=== PATIENT | female | born 1945 | race Hispanic/Latino ===

== ENCOUNTER 2017-06-10 20:56 | Emergency (ER) | payer MEDICARE ==
--- NOTE | 2017-06-10 22:38 | RAD ---
PORTABLE CHEST: 06/10/17 COMPARISON: 07/22/09 study. HISTORY: Cough. Heart size appears slightly enlarged. Aorta is tortuous. The lungs are clear of infiltrates. IMPRESSION: Borderline to minimal cardiomegaly. POS: [facility]
== END 2017-06-10 22:43 | disposition home or self-care (01) ==
LOC: ERS 20:56
DX: J20.9 Acute bronchitis, unspecified (principal); J45.909 Unspecified asthma, uncomplicated; I10 Essential (primary) hypertension; E66.9 Obesity, unspecified; E03.9 Hypothyroidism, unspecified
CPT/HCPCS: 71010

== ENCOUNTER 2017-06-13 10:35 | Emergency (ER) | payer MEDICARE ==
--- NOTE | 2017-06-13 11:07 | CT ---
CT BRAIN WITHOUT CONTRAST: History: Headache. FINDINGS: Comparison made with 05-06-15. No evidence of acute infarct, hemorrhage, midline shift or abnormal extraaxial fluid collections are seen. The ventricular size is normal and the basal cisterns patent. The bony calvarium is intact. T he visualized paranasal sinuses and mastoid air cells are clear. IMPRESSION: No CT evidence of acute intracranial process. POS: [facility]
[2017-06-13 11:21] LABS: #Basophils 0.1 thou/uL (0.0-0.2); #Lymphocytes 1.8 thou/uL (1.20-3.40); #Monocytes 0.8 thou/uL (0.11-0.59); #Neutrophils 8.2 thou/uL (1.40-6.50); %Basophils 0.6 % (0.0-1.0); %Eosinophils 0.2 % (0.0-10.0); %Lymphocytes 16.4 % (21.0-51.0); %Monocytes 7.5 % (0.0-10.0); Hematocrit 40.2 % (36.0-47.0); Mean Platelet Volume 5.9 fL (7.4-10.4); Red Blood Cell (RBC) Count 4.22 mill/uL (4.20-5.40); White Blood Cell (WBC) Count 10.8 thou/uL (4.8-10.8)
[2017-06-13 11:38] LABS: Anion Gap 13 mmol/L (10-20); BUN (Urea Nitrogen) 18 mg/dL (9.8-20.1); Calc. Creatinine Clearance 0 mL/min (70-130); Calcium 9.3 mg/dL (7.8-10.44); Carbon Dioxide 25 mmol/L (23-31); Chloride 105 mmol/L (98-107); Estimated GFR-MDRD Greater than 90
[2017-06-13] MEDS ORDERED: Acetaminophen 325 MG TAB ONE (12:40)
== END 2017-06-13 12:51 | disposition home or self-care (01) ==
LOC: ERS 10:35
DX: R51 Headache (principal); E66.9 Obesity, unspecified; E03.9 Hypothyroidism, unspecified; I10 Essential (primary) hypertension
CPT/HCPCS: 36415; 70450; 80048; 85025; 85652

== ENCOUNTER 2017-08-16 06:30 | Emergency (ER) | payer MEDICARE | END 2017-08-16 07:54 | disposition home or self-care (01) | LOC: ERS 06:30 | DX: I10 Essential (primary) hypertension (principal); E66.9 Obesity, unspecified; E03.9 Hypothyroidism, unspecified; Z79.899 Other long term (current) drug therapy; Z79.82 Long term (current) use of aspirin | CPT/HCPCS: 99283 ==

== ENCOUNTER 2018-09-03 16:46 | Outpatient (CLI) | payer MEDICARE ==
[2018-09-03 17:59] LABS: Hemoglobin 13.6 g/dL (12.0-16.0)
[2018-09-03 18:30] LABS: Anion Gap 13 mmol/L (10-20); BUN (Urea Nitrogen) 15 mg/dL (9.8-20.1); Calc. Creatinine Clearance 0 mL/min (70-130); Calcium 9.4 mg/dL (7.8-10.44); Carbon Dioxide 25 mmol/L (23-31); Chloride 105 mmol/L (98-107); Estimated GFR-MDRD 68; Glucose 127 mg/dL (83-110); Potassium 4.1 mmol/L (3.5-5.1); Sodium 139 mmol/L (136-145)
--- NOTE | 2018-09-07 20:25 | EKG ---
Test Reason : Blood Pressure : / mmHG Vent. Rate : 080 BPM Atrial Rate : 080 BPM P-R Int : 152 ms QRS Dur : 094 ms QT Int : 376 ms P-R-T Axes : 054 -66 040 degrees QTc Int : 433 ms Normal sinus rhythm Pulmonary disease pattern Incomplete right bundle branch block Left anterior fascicular block Abnormal ECG When compared with ECG of 06-MAY-2015 19:26, Incomplete right bundle branch block is now Present Confirmed by Jamal MARTINEZ ([id number]) on 09/07/2018 8:24:39 PM Referred By: JAMES Confirmed By:Jamal MARTINEZ
== END 2018-09-03 16:47 | disposition home or self-care (01) ==
LOC: LABBT 16:46
PROVIDERS: ATTEND Otolaryngology Plastic Surgery within the Head & Neck
DX: R22.2 Localized swelling, mass and lump, trunk (principal); K11.8 Other diseases of salivary glands
CPT/HCPCS: 80048; 85014; 85018; 93005; 93010

== ENCOUNTER 2018-09-05 10:02 | Day surgery (SDC) | payer MEDICARE ==
[2018-09-03 16:58] VITALS: BMI 38.2
[2018-09-05] MEDS ORDERED: Midazolam HCl 2 mg/2 ml Vial ONE (12:10)
[2018-09-05] MEDS ORDERED: Fentanyl 100 MCG/2 ML VIAL ONE ×2 (12:22→13:50)
[2018-09-05] MEDS ORDERED: Lidocaine 1% w/Epinephrine 1:100K 30 ML VIAL ONE (12:25)
[2018-09-05] MEDS ORDERED: Albuterol Sulfate HFA (OR ONLY) ONE (12:50)
[2018-09-05] MEDS ORDERED: HYDROcodone/Acetaminophen 5/325 mg Tablet ONE (15:11)
[2018-09-05] MEDS ORDERED: PHENYLEPHRINE-NS 100 MCG/ML 10 ML SYRINGE ONE (16:20)
[2018-09-05] MEDS ORDERED: Ondansetron PF 4 MG/2 ML Vial ONE (16:20)
[2018-09-05] MEDS ORDERED: Dexamethasone 20 MG/5 ML VIAL ONE (16:20)
[2018-09-05] MEDS ORDERED: PROPOFOL 200 MG/20 ML VIAL ONE (16:20)
[2018-09-05] MEDS ORDERED: Lidocaine 1% PF 5 ML VIAL ONE (16:20)
[2018-09-05] MEDS ORDERED: ePHEDrine/0.9% NaCl/PF SYRINGE 50 mg/10 ml ONE (16:20)
[2018-09-05] MEDS ORDERED: Succinylcholine Chloride 20 MG/ML 10 ml SYRINGE FS ONE (16:20)
--- NOTE | 2018-09-05 21:27 | OP ---
DATE OF PROCEDURE: 09/05/2018 PREOPERATIVE DIAGNOSIS: Left parotid mass. POSTOPERATIVE DIAGNOSIS: Left parotid mass. PROCEDURE: Left superficial parotidectomy with facial nerve monitor. ESTIMATED BLOOD LOSS: 10 mL. COMPLICATIONS: None. ANESTHESIA: GETA. PROCEDURE IN DETAIL: The patient was taken to the operative room and placed supine on the table. General endotracheal anesthesia was obtained by the anesthesia staff. Tube was secured in the right lower lip. The facial nerve monitor was inserted into the orbicularis javi and orbicularis oculi muscles. It was turned on and remained on throughout the procedure. Following this, the patient was prepped and draped in standard surgical fashion. Modified Eric incision was outlined. The portion of the inferior incision just anterior to the earlobe extending around the earlobe with 1 cm margin down to the left neck was used to approach this posteriorly located parotid tail mass. Following this, skin and subcutaneous tissue were elevated. A flap over the posterior aspect of the parotid gland was obtained. The mass was adjacent to the posterior edge of the left superficial lobe of the parotid. This mass along with a cuff of normal tissue was removed. A marginal mandibular branch of the facial nerve was identified and was kept at the facial nerve. Following this, the wound was irrigated. The wound was closed using 3-0 and 4-0 Monocryl stitches and Dermabond for the skin. The patient tolerated the procedure well. The facial nerve monitor was turned off. Job ID: [id number]
== END 2018-09-05 16:13 | disposition home or self-care (01) ==
LOC: SDC 10:02
PROVIDERS: ATTEND Otolaryngology Plastic Surgery within the Head & Neck
PROC: 0CBC0ZZ Excision of Left Parotid Duct, Open Approach (ICD-10-PCS; principal; 2018-09-05)
DX: D11.0 Benign neoplasm of parotid gland (principal); E03.9 Hypothyroidism, unspecified; I10 Essential (primary) hypertension; Z86.73 Personal history of transient ischemic attack (TIA), and cerebral infarction without residual deficits; Z79.51 Long term (current) use of inhaled steroids; Z79.82 Long term (current) use of aspirin; Z79.899 Other long term (current) drug therapy
CPT/HCPCS: 88305; 96374; J1100; J2001; J2250; J2405; J2704; J3010

== ENCOUNTER 2020-12-24 21:27 | Emergency (ER) | payer MEDICARE ==
[2020-12-24 22:21] LABS: #Basophils 0.1 thou/uL (0.0-0.2); #Eosinphils 0.2 thou/uL (0.0-0.7); #Lymphocytes 3.1 thou/uL (1.20-3.40); #Monocytes 0.5 thou/uL (0.11-0.59); #Neutrophils 3.9 thou/uL (1.40-6.50); %Basophils 1.7 % (0.0-1.0); %Lymphocytes 39.9 % (21.0-51.0); %Neutrophils 50.4 % (42.0-75.0); Hemoglobin 13.5 g/dL (12.0-16.0); Mean Corpuscular HGB CONC 33.8 g/dL (32.0-36.0); Mean Corpuscular Hemoglobin 31.1 pg (27.0-31.0); Mean Corpuscular Volume 91.9 fL (78.0-98.0); Mean Platelet Volume 6.2 fL (7.4-10.4); Platelet Count 128 thou/uL (130-400); RBC Distribution Width 12.9 % (11.5-14.5); Red Blood Cell (RBC) Count 4.34 mill/uL (4.20-5.40); White Blood Cell (WBC) Count 7.7 thou/uL (4.8-10.8)
[2020-12-24 22:42] LABS: ALT (SGPT) 17 U/L (8-55); AST (SGOT) 23 U/L (5-34); Albumin 4.4 g/dL (3.4-4.8); Alkaline Phosphatase 85 U/L (40-110); Anion Gap 14 mmol/L (10-20); BUN (Urea Nitrogen) 12 mg/dL (9.8-20.1); Bilirubin, Total 0.5 mg/dL (0.2-1.2); Calc. Creatinine Clearance 0 mL/min (70-130); Calcium 9.4 mg/dL (7.8-10.44); Carbon Dioxide 27 mmol/L (23-31); Chloride 101 mmol/L (98-107); Globulin 2.8 g/dL (2.4-3.5); Glucose 114 mg/dL (83-110); Potassium 3.6 mmol/L (3.5-5.1); Protein, Total 7.2 g/dL (5.8-8.1); Sodium 138 mmol/L (136-145)
[2020-12-24] MEDS ORDERED: cloNIDine 0.1 MG TAB ONE (23:07)
[2020-12-24] MEDS ORDERED: Acetaminophen 500 MG TAB ONE (23:07)
== END 2020-12-25 00:37 | disposition home or self-care (01) ==
LOC: ERS 21:27
DX: I10 Essential (primary) hypertension (principal); E66.9 Obesity, unspecified; E03.9 Hypothyroidism, unspecified; Z79.899 Other long term (current) drug therapy; Z79.82 Long term (current) use of aspirin
CPT/HCPCS: 36415; 71045; 80053; 84484; 85025; 93005

== ENCOUNTER 2021-04-08 11:00 | Emergency (ER) | payer MEDICARE ==
[2021-04-08] MEDS ORDERED: Ondansetron PF 4 MG/2 ML Vial ONE (14:59)
[2021-04-08] MEDS ORDERED: Lorazepam 1 MG TAB ONE (15:01)
[2021-04-08 15:10] LABS: #Basophils 0.1 thou/uL (0.0-0.2); #Eosinphils 0.1 thou/uL (0.0-0.7); #Monocytes 0.3 thou/uL (0.11-0.59); %Eosinophils 1.6 % (0.0-10.0); %Lymphocytes 31.6 % (21.0-51.0); %Monocytes 4.6 % (0.0-10.0); %Neutrophils 61.2 % (42.0-75.0); Hemoglobin 14.2 g/dL (12.0-16.0); Mean Corpuscular HGB CONC 35.5 g/dL (32.0-36.0); Mean Corpuscular Hemoglobin 32.2 pg (27.0-31.0); Mean Corpuscular Volume 90.7 fL (78.0-98.0); Mean Platelet Volume 6.6 fL (7.4-10.4); Platelet Count 120 thou/uL (130-400); RBC Distribution Width 12.4 % (11.5-14.5); Red Blood Cell (RBC) Count 4.41 mill/uL (4.20-5.40); White Blood Cell (WBC) Count 6.5 thou/uL (4.8-10.8)
[2021-04-08] MEDS ORDERED: Acetaminophen 500 MG TAB ONE (15:25)
[2021-04-08 15:33] LABS: ALT (SGPT) 17 U/L (8-55); AST (SGOT) 22 U/L (5-34); Albumin 4.6 g/dL (3.4-4.8); Alkaline Phosphatase 96 U/L (40-110); Anion Gap 16 mmol/L (10-20); BUN (Urea Nitrogen) 10 mg/dL (9.8-20.1); Bilirubin, Total 0.7 mg/dL (0.2-1.2); Calc. Creatinine Clearance 0 mL/min (70-130); Calcium 9.7 mg/dL (7.8-10.44); Carbon Dioxide 27 mmol/L (23-31); Chloride 98 mmol/L (98-107); Globulin 3.2 g/dL (2.4-3.5); Glucose 107 mg/dL (83-110); Potassium 3.8 mmol/L (3.5-5.1); Protein, Total 7.8 g/dL (5.8-8.1); Sodium 137 mmol/L (136-145)
[2021-04-08] MEDS ORDERED: diphenhydrAMINE 50 MG/ML VIAL ONE (16:19)
[2021-04-08] MEDS ORDERED: Ketorolac Tromethamine 30 MG/ML VIAL ONE (16:19)
[2021-04-08] MEDS ORDERED: Metoclopramide HCl 10 MG/2 ML VIAL ONE (16:19)
[2021-04-08 17:05] LABS: Bilirubin Negative (Negative); Blood, Urine Negative (Negative); Clarity Clear (Clear); Glucose, Urine (Dipstick) Normal (Negative); Ketone, Urine Negative (Negative); Leukocyte Negative Leu/uL (Negative); Nitrite Negative (Negative); Protein, Urine (Dipstick) Negative (Neg-Trace); Specific Gravity, Urine 1.005 (1.002-1.036); Urobilinogen Normal mg/dL (Less than 2)
== END 2021-04-08 18:30 | disposition home or self-care (01) ==
LOC: ERS 11:00
DX: R51.9 Headache, unspecified (principal); I10 Essential (primary) hypertension; E03.9 Hypothyroidism, unspecified; Z79.899 Other long term (current) drug therapy
CPT/HCPCS: 36415; 70450; 80053; 81003; 84484; 85025; 96365; 96375; J1200; J1885; J2405; J2765